=== PATIENT | female | born 1975 | race Caucasian/White ===

== ENCOUNTER → 2017-01-05 | Outpatient (CLI) | payer MEDICARE, OTHER ==
[~2017-01-05] MED LIST: ACETAMINOOPHEN-1 TAB PO; ACETAMINOPHEN PO; ALBUTEROL17 GM INH; AMOXICILLIN500 M1 PO; ANSAID100 MG PO; ASPIRIN EC81 M1 PO; CORTISPORI10 ML OTIC AD; FLEXERIL10 MG PO; GLUCOPHAGE500 M1 PO; HYDROCODONE-APA1 T44 PO; KETOPROFEN PO; LEVOTHYROXINE75 MCG PO; LOPRESSOR PO; MEDROL4 MG/DOSE- PO; MOTRIN600 MG PO; VOLTAREN75 MG PO
--- NOTE | ~2017-01-05 | CT55 ---
[facility] A Service of [facility] RADIOLOGY TEXT RESULTS PATIENT: DAYANNA STARR LOCATION: [facility] : 71 UNIT #: [id number] AGE: [address]: Kane Gilliam MD SEX: F ORDER DR: [id number] [id number] [facility]. [place], [place] [address] [id number] O MR#: [id number] Acc #: [id number] NAME: DAYANNA STARR : 1975 SEX: F STUDY DATE/TIME: 01/05/2017 10:11 UNIT: [facility] ROOM: STUDY DESCRIPTION: CT Chest W Con Attending Physician: Kane Gilliam M.D. Referring Physician: Kane Gilliam M.D. Ordering Physician: Kane Gilliam M.D. Primary Care Physician: Elizabeth Bueno M.D. MEDICAL IMAGING REPORT This report is preliminary unless electronic signature is present EXAM CT of the chest with contrast INDICATIONS Shortness of breath for [address] scan of the chest performed following administration of IV contrast. Coronal and sagittal reformatted images were obtained. This CT exam was performed with one or more of the following radiation dose reduction techniques: automatic exposure control, adjustment of mA and/or kV according to patient size, and iterative reconstruction. COMPARISON STUDIES 09/12/2009. FINDINGS There is minimal subsegmental scarring or atelectasis in the right middle lobe and lingula. No airspace consolidation or suspicious pulmonary nodule. No lymphadenopathy or pleural effusion. Limited imaging of the upper abdomen is unremarkable. The bone windows are unremarkable. IMPRESSION Minimal linear scarring or atelectasis within the right middle lobe and lingula. The study is otherwise unremarkable. Dictated by... Duran Beltre M.D. THIS IS AN ELECTRONICALLY VERIFIED REPORT [facility] A Service of [facility] RADIOLOGY TEXT RESULTS PATIENT: DAYANNA STARR LOCATION: [facility] : [birth year] UNIT #: [id number] AGE: [address]: Kane Gilliam MD SEX: F ORDER DR: Duran Beltre M.D. at 01/11/2017 11:21 AM ARS/pcl TD: 01/06/2017 15:38 JOB #: [id number] MEDICAL IMAGING REPORT Page 1 of 1 COPY
[2017-01-05 15:41] LABS: POC - CREATININE 0.89 mg/dL (0.44-1.03); POC - GFR >60.0 mL/min (>60)
== END | disposition home or self-care (01) ==
LOC: CRC 08:17
PROVIDERS: Internal Medicine
DX: J44.9 Chronic obstructive pulmonary disease, unspecified (principal)
CPT/HCPCS: 71260; 82565; 94060; 94726; 94729; Q9967